=== PATIENT | male | born 1965 | race Caucasian/White ===

== ENCOUNTER 2016-09-10 20:02 | Emergency (ER) | payer BC ==
[2016-09-10 20:14] VITALS: BP 148/97
[2016-09-10] MEDS ORDERED: Diphtheria,Pertussis(Acell),Tetanus Vaccine 0.5 ML SDV inactive IM ONE (20:18)
--- NOTE | 2016-09-10 20:22 | EDM.PDOC ---
ED HPI Skin/Rash - General Chief Complaint: Laceration Stated Complaint: CUT RING FINGER ON LEFT HAND Time Seen by Provider: 09/10/16 20:06 Source: Reports: Patient History Limitations: Reports: No limitations - History of Present Illness INITIAL COMMENTS - FREE TEXT/NARRATIVE: Patient present for evaluation treatment of a laceration to the left hand fourth finger. Patient reports that the injury occurred about 40 minutes prior to arrival here. Patient reports he picked up a knife by the wrong end cutting his left hand forth fingerover the ventral distal phalanx. He reports that it bled immediately and he had difficulty controlling the bleeding therefore he decided to present to the ER. He denies any numbness or tingling to the finger. He denies any decreased range of motion. Patient is right-handed. Patient is unsure of his last tetanus. Location, Skin: Reports: upper extremity, left - Related Data Allergies Allergy/AdvReac Type Severity Reaction Status Date / Time salmon Allergy Other Uncoded 09/10/16 20:23 ED ROS GENERAL - Review of Systems Review Of Systems: See Below Musculoskeletal: Reports: hand pain (left hand 4th ventral finger distal phalnex ), other (denies decreased range or motion) Neurological: Denies: Numbness, Tingling ED EXAM, SKIN/RASH Exam: See Below Exam Limited By: No limitations General Appearance: alert, WD/WN, no apparent distress Respiratory/Chest: no respiratory distress Cardiovascular: normal peripheral pulses, regular rate, rhythm Peripheral Pulses: 2+: radial (L) Neurological: alert, normal cognition Psychiatric: normal affect, normal mood Skin: Warm, Dry, Normal color, Wound/incision (approximately 2cm open lcaterion to the left hand 4th ventral finger distal phalnex ) Location, Skin: upper extremity, left Characteristics: linear ED SKIN PROCEDURES - Laceration/Wound Repair Left Distal Ventral Finger Lac/wound length in cm: 2 Appearance: subcutaneous Distal NVT: neuro & vascular intact, no tendon injury Anesthetic type: local Local anesthesia - Lidocaine (Xylocaine): 1% plain Local anesthetic volume: 1cc Skin prep: saline, sterile drape, other (surclens) Closed with: dermabond Suture size: other (5-0) # of sutures: 4 Suture type: nylon, interrupted, simple Sterile dressing applied: nurse Tetanus status addressed: Yes Complications: No Course - Vital Signs Last Recorded V/S: Last Vital Signs Temp 36.4 C 09/10/16 20:09 Pulse 87 09/10/16 20:09 Resp 16 09/10/16 20:09 BP 148/97 H 09/10/16 20:09 Pulse Ox 97 09/10/16 20:09 - Orders/Labs/Meds Orders: Active Orders 24 hr Category Date Time Status Vaccines to be Administered [RC] PER UNIT ROUTINE Care 09/10/16 20:18 Ordered Meds: Medications Discontinued Medications Generic Name Dose Route Start Last Admin Trade Name Faisal PRN Reason Stop Dose Admin Diphtheria/Tetanus/Acell Pertussis 0.5 ml 09/10/16 20:18 09/10/16 20:26 Boostrix IM 09/10/16 20:19 0.5 ml .ONCE ONE Administration Lidocaine HCl 50 ml 09/10/16 20:37 09/10/16 21:10 Xylocaine 1% INJECT 09/10/16 20:38 50 ml ONETIME ONE Administration - Re-Assessments/Exams Free Text/Narrative Re-Assessment/Exam: 09/10/16 21:00 4 sutures placed to the left hand 4th finger. Tetanus updated. Discharge instructions as documented. Departure - Departure Time of Disposition: 21:01 Disposition: Home, Self-Care 01 Condition: good Clinical Impression: Laceration Instructions: Laceration Care, Adult, [id number] Referrals: PCP,Roderick [Primary Care Provider] - Marybel Combs, ENVIRONMENTAL LABORATORY TECHNICIAN [Nurse Practitioner] - Forms: ED Department Discharge Additional Instructions: Wash the wound with gentle soap and water twice a day. Antibacterial ointment to one twice a day for the first 3 days. Keep the wound covered during the day. Leave open to air at night. Monitor for signs of infection such as increased swelling, pus or redness. Presents to clinic or the ER should these develop. take [id number] Tylenol or Motrin as needed for pain and symptom relief. Have the sutures removed in [address] [facility] located on the first floor [facility] is open 8 a.m. to 5 PM thursday through thursday and will remove the sutures for free. Please return to the ER for any problems, questions or concerns. - My Orders Last 24 Hours: My Active Orders 09/10/16 20:18 Vaccines to be Administered [RC] PER UNIT ROUTINE - Assessment/Plan Last 24 Hours: My Active Orders 09/10/16 20:18 Vaccines to be Administered [RC] PER UNIT ROUTINE
[2016-09-10] MEDS ORDERED: Lidocaine 1% 50 ML MDV INJECT ONE (20:37)
== END 2016-09-10 21:48 | disposition home or self-care (01) ==
LOC: JD.ED 20:02
DX: S61.215A Laceration without foreign body of left ring finger without damage to nail, initial encounter (principal); W26.0XXA Contact with knife, initial encounter; Z23 Encounter for immunization; Z91.018 Allergy to other foods
CPT/HCPCS: 12001; 90471; 90715; 99282-25; 99283-25

== ENCOUNTER 2016-09-12 19:56 | Emergency (ER) | payer BC ==
--- NOTE | 2016-09-12 21:05 | EDM.PDOC ---
ED HPI Skin/Rash - General Chief Complaint: Laceration Stated Complaint: STITCHES IN HAND CAME UNDONE Time Seen by Provider: 09/12/16 20:44 Source: Reports: Patient, RN notes reviewed - History of Present Illness INITIAL COMMENTS - FREE TEXT/NARRATIVE: 51-year-old male comes in with concerns of a stitch coming loose left ring finger. He suffered laceration to the ring finger about 2 days ago. Multiple stitches were placed at that time. One of the stitches has come untied. The wound has otherwise been doing fine for him. No unusual swelling or drainage. - Related Data Allergies Allergy/AdvReac Type Severity Reaction Status Date / Time salmon Allergy Other Uncoded 09/12/16 20:04 Home Meds: Ambulatory Orders Medication Instructions Recorded Confirmed Lisinopril [Lisinopril] 5 mg PO DAILY 09/12/16 09/12/16 Past Medical History Cardiovascular History: Reports: Hypertension - Past Surgical History GI Surgical History: Reports: Esophageal dilatation Social & Family History - Tobacco Use Smoking Status *Q: Never Smoker - Caffeine Use Caffeine Use: Reports: Tea - Recreational Drug Use Recreational Drug Use: No ED ROS GENERAL - Review of Systems Review Of Systems: See Below Constitutional: Reports: no symptoms HEENT: Reports: No symptoms Respiratory: Reports: No Symptoms Cardiovascular: Reports: No symptoms GI/Abdominal: Reports: No symptoms Musculoskeletal: Reports: other (Minimal discomfort. Injury distal left ring finger, one of the sutures has now become untied) Skin: Reports: no symptoms Neurological: Denies: Numbness, Tingling ED EXAM, SKIN/RASH Exam: See Below General Appearance: alert, no apparent distress Head: atraumatic Neck: supple Respiratory/Chest: no respiratory distress Extremities: other (Small about 1.5 cm sutured laceration distal volar aspect left ring finger. One of the sutures has become unemployed. Edges of the wound very slightly wear them one suture has become untied. There is no unusual swelling or drainage, no unusual erythema) Skin: Warm, Dry, Normal color Course - Vital Signs Last Recorded V/S: Last Vital Signs Temp 98.1 F 09/12/16 20:04 Pulse 67 09/12/16 21:27 Resp 15 09/12/16 20:04 BP 129/85 09/12/16 20:04 Pulse Ox 96 09/12/16 21:27 - Re-Assessments/Exams Free Text/Narrative Re-Assessment/Exam: 09/12/16 22:28. I did try to tie the ends of the suture back together. However there was just not enough material there to work with with the suture ends having been previously clipped after tying. Therefore we have placed a couple of Steri-Strips. Discharge instructions as documented. Departure - Departure Time of Disposition: 21:25 Disposition: Home, Self-Care 01 Clinical Impression: Finger laceration Qualifiers: Encounter type: subsequent encounter Qualified Code(s): S61.219D - Laceration without foreign body of unspecified finger without damage to nail, subsequent encounter Instructions: Laceration Care, Adult, [id number] Referrals: PCP,None [Primary Care Provider] - Forms: ED Department Discharge Additional Instructions: try keep steristrips on as best you can for the next 5 days or so, keep protected when at work, have original stitches placed 2 days ago removed in about 8 days.
== END 2016-09-12 21:27 | disposition home or self-care (01) ==
LOC: JD.ED 19:56
CPT/HCPCS: 99281; 99283